=== PATIENT | female | born 1990 | race Caucasian/White ===

== ENCOUNTER 2023-07-08 23:04 | Emergency (ER) | payer SELFPAY ==
[~2023-07-08] VITALS: Ht 172.7 cm; Wt 80.0 kg
[2023-07-08 23:56] VITALS: BP 153/103; PULSE 118; RESP 17; TEMP 99.4; O2SAT 100
== END 2023-07-09 03:17 | disposition left against medical advice (07) ==
LOC: ER 23:04
DX: Z53.21 Procedure and treatment not carried out due to patient leaving prior to being seen by health care provider (principal)
CPT/HCPCS: 99281